=== PATIENT | male | born 1995 | race Asian ===

== ENCOUNTER 2020-08-13 10:56 | Emergency (ER) | payer BC ==
[~2020-08-13] VITALS: Ht 180.3 cm; Wt 74.8 kg
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
--- NOTE | 2020-08-13 11:25 | NUR ---
GOLD STAMPER AT BEDSIDE FOR XRAYS.
[2020-08-13] MEDS ORDERED: ONDANSETRON HCL/PF 4 MG/2 ML VIAL ONE ×2 (11:26→12:23)
[2020-08-13] MEDS ORDERED: ONDANSETRON HCL/PF 4 MG/2 ML VIAL IVP ONE (11:30)
[2020-08-13 11:36] LABS: BASOPHILS % (AUTO) 0.3 % (0.0-2.0); EOSINOPHILS % (AUTO) 0.6 % (0.0-6.0); HEMATOCRIT 44 % (39-51); HEMOGLOBIN 14.3 g/dL (13.5-17.5); LYMPHOCYTES # (AUTO) 3.9 /CMM (0.8-4.8); MEAN CORPUSCULAR HGB CONC 33 g/dl (31.0-36.0); MEAN CORPUSCULAR VOLUME 92 fL (80-96); MONOCYTES # (AUTO) 0.5 /CMM (0.1-1.30); MONOCYTES % (AUTO) 5.4 % (2.0-12.0); NEUTROPHILS # (AUTO) 5.3 /CMM (1.8-8.9); NEUTROPHILS % (AUTO) 53.7 % (43.0-81.0); PLATELET COUNT (AUTO) 219 /CMM (150-450); RED BLOOD CELL COUNT(AUTO) 4.74 MIL/uL (4.5-6.0); WHITE BLOOD COUNT (AUTO) 9.8 K/uL (4.3-11.0)
--- NOTE | 2020-08-13 11:40 | NUR ---
PATIENT TAKEN TO RADIOLOGY FOR CT. PATIENT STILL NOTED TO BE NAUSEOUS. DR. CRUZ AWARE.
--- NOTE | 2020-08-13 11:50 | NUR ---
CALLED [facility] HALIMA RAGSDALE FOR HIGHER LEVEL TRAUMA TRANSFER. PT ACCEPTED BY DR. CHAN AT [facility] ED.
[2020-08-13 11:53] LABS: ALBUMIN 4.2 g/dL (3.4-5.0); BILIRUBIN,DIRECT 0.1 mg/dL (0.0-0.2); BILIRUBIN,TOTAL 0.4 mg/dL (0.2-1.0); CALCIUM, SERUM 9.2 mg/dL (8.5-10.1); CREATININE 1.1 mg/dL (0.6-1.3); POTASSIUM 3.1 mmol/L (3.5-5.1); TOTAL PROTEIN, SERUM 7.7 g/dL (6.4-8.2)
--- NOTE | 2020-08-13 12:18 | NUR ---
PATIENT AA/OX4, PER PATIENT HEADACHE AND NAUSEA HAS IMPROVED. VSS. KEPT COMFORTABLE. C COLLAR STILL IN PLACED.
[2020-08-13] MEDS ORDERED: LEVETIRACETAM (500MG) 500 MG in IV NS 0.9% 100 ML IV ONE (12:30)
[2020-08-13] MEDS ORDERED: ONDANSETRON HCL/PF - ER 4 MG/2 ML VIAL IV ONE (12:30)
[2020-08-13 12:39] VITALS: BP 103/58
--- NOTE | 2020-08-13 12:42 | NUR ---
PATIENT REFUSED FOR STAFF TO INFORM HIS FAMILY AT THIS TIME, PER PATIENT HE'LL CALL THEM HIMSELF
--- NOTE | 2020-08-13 12:48 | NUR ---
PATIENT TRANSFERRED VIA 911, IN STABLE CONDITION, VSS STABLE. PATIENT AA/OX4, KEPPRA INFUSED. DENIES NAUSEA AT THIS TIME. C/O PAIN 06/23 REPORT AND PAPERWORKS GIVEN TO EMS.
== END 2020-08-13 12:50 | disposition short-term general hospital (02) ==
LOC: ER 11:01
DX: S06.6X9A Traumatic subarachnoid hemorrhage with loss of consciousness of unspecified duration, initial encounter (principal); S02.119A Unspecified fracture of occiput, initial encounter for closed fracture; V03.90XA Pedestrian on foot injured in collision with car, pick-up truck or van, unspecified whether traffic or nontraffic accident, initial encounter; Y93.02 Activity, running; Y92.89 Other specified places as the place of occurrence of the external cause; E87.6 Hypokalemia; Z20.822 Contact with and (suspected) exposure to COVID-19; R11.2 Nausea with vomiting, unspecified; M25.571 Pain in right ankle and joints of right foot; M25.531 Pain in right wrist
CPT/HCPCS: 36415; 70450; 72125; 73110 ×2; 73610; 80048; 80076; 85025; 85730; 87426; 96365; 96375; 96376; 99291; C9803; J1953; J2405 ×2; J7030